=== PATIENT | female | born 1970 | race African-American/Black ===

== ENCOUNTER 2017-04-24 07:39 | Day surgery (SDC) | payer OTHER ==
[2017-04-20 10:49] VITALS: BMI 33.4
[~2017-04-24 07:39] MED LIST: ceFAZolin SODIUM 1 GM VIAL IVPB ONE
[2017-04-24 08:51] LABS: INR 1.13 (0.82-1.09); PROTHROMBIN TIME (PATIENT) 12.5 SEC (9.98-11.88)
--- NOTE | 2017-04-24 09:10 | HP ---
Past Medical History - Primary Care Physician PCP:: Jm Pastor - Admission Chief Complaint: 47yo P3 with chronic pelvic pain due to hematometria and post ablation, post ligation syndrome admitted for hysteroscopy, D&C, lysis of uterine adhesions. History of Present Illness: Pt with cyclic pelvic pains and amenorrhea after endometrial ablation in 2015. The pt was found to have hematometria on US. History Source: Patient, Medical Record Limitations to Obtaining History: No Limitations - Past Medical History CRACK OFF PERSON: No: Alzheimer's, CVA, Dementia, Migraine, Multiple Sclerosis, Peripheral Neuropathy, Parkinson's, Seizure, Syncope, TIA, Vertigo, Other Cardiovascular: Yes: Deep Vein Thrombosis (Bilateral PE 2011), HTN Pulmonary: Yes: Asthma, Pulmonary Embolus (2011) Gastrointestinal: Yes: GERD Hepatobiliary: No: Cirrhosis, Cholelithiasis, Cholecystitis, Choledocholithiasis , Hepatitis A, Hepatitis B, Hepatitis C, Other Renal/: No: Renal Failure, Renal Inusuff, BPH, Cancer, Hematuria, Hemodialysis , Neurogenic Bladder, Renal Calculi, UTI, Other Reproductive: Yes: Fibroids, Other (post ligation post ablation) ...Term: 3 Heme/Onc: Yes: Anemia, Hypercoaguable State Infectious Disease: No: AIDS, C-Diff, Herpes Zoster, HIV, MRSA, STD's, Tuberculosis, VREF, Other Psych: No: Addictions, Anxiety, Bipolar, Depression, Panic, Psychosis, Schizophrenia, Other Musculoskeletal: No: Bursitis, Chronic low back pain, Hemiparesis, Hemiplegia, Osteoarthritis, Paraplegia, Other Rheumatology: Yes: Rheumatoid Arthritis Endocrine: Yes: Diabetes Mellitus Dermatology: No: Basal Cell, Cellulitis, Eczema, Melanoma, Psoriasis, Squamous Cell, Other - Past Surgical History Past Surgical History: Yes: (x2), Tubal Ligation Hx Myomectomy: No Hx Transabdominal Cerclage: No Additional Surgical History: Endometrial Ablation - Smoking History Smoking history: Never smoked Have you smoked in the past 12 months: No Aproximately how many cigarettes per day: 0 - Alcohol/Substance Use Hx Alcohol Use: No History of Substance Use: reports: None - Social History Usual Living Arrangement: Yes: With Child ADL: Independent History of Recent Travel: No Home Medications - Allergies Allergies/Adverse Reactions: Allergies Allergy/AdvReac Type Severity Reaction Status Date / Time corn [Angier] Allergy Mild Rash Verified 04/24/17 07:50 No Known Drug Allergies Allergy Verified 04/24/17 07:50 Peanuts Allergy Severe Difficulty Uncoded 04/24/17 07:50 Breathing seafood Allergy Severe Difficulty Uncoded 04/24/17 07:50 Breathing - Home Medications Home Medications: Ambulatory Orders Albuterol Sulfate [Ventolin Hfa] 8 gm IH QID PRN 12/18/12 Omeprazole 20 mg PO BID 04/01/13 Amlodipine Besylate [Norvasc -] 5 mg PO HS 12/12/15 Salmeterol/Fluticasone [Advair 100Mcg/50Mcg -] 1 inh IH PRN 09/20/16 Sulfasalazine [Sulfazine] 1,000 mg PO BID 04/20/17 Family Disease History - Family Disease History Family Disease History: Diabetes: Father (HTN, Asthma), Mother, Other: Father, Sister ( due to cardiac hypertrophy) Review of Systems - Review of Systems Constitutional: reports: No Symptoms Eyes: reports: No Symptoms HENT: reports: No Symptoms Neck: reports: No Symptoms Cardiovascular: reports: No Symptoms Respiratory: reports: No Symptoms Gastrointestinal: reports: No Symptoms Genitourinary: reports: No Symptoms Breasts: reports: No Symptoms Reported Musculoskeletal: reports: No Symptoms Integumentary: reports: No Symptoms Neurological: reports: No Symptoms Endocrine: reports: No Symptoms Hematology/Lymphatic: reports: No Symptoms Psychiatric: reports: No Symptoms 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 Vital Signs: Vital Signs Temperature 98.4 F 04/24/17 07:54 Pulse Rate 73 04/24/17 07:54 Respiratory Rate 18 04/24/17 07:54 Blood Pressure 118/72 04/24/17 07:54 O2 Sat by Pulse Oximetry (%) 97 04/24/17 07:54 Constitutional: Yes: Well Nourished, No Distress, Calm Eyes: Yes: WNL, Conjunctiva Clear HENT: Yes: WNL, Atraumatic, Normocephalic Neck: Yes: WNL, Supple, Trachea Midline Cardiovascular: Yes: WNL, Regular Rate and Rhythm Respiratory: Yes: WNL, Regular, CTA Bilaterally Gastrointestinal: Yes: Normal Bowel Sounds, Soft, Abdomen, Obese ...Rectal Exam: Yes: WNL Renal/: Yes: WNL Pelvis: Yes: WNL External Genitalia: Yes: Normal Internal Exam Deferred: No Vaginal Exam: Yes: Normal Cervix: Yes: Normal Uterus: Yes: Normal, Enlarged Adnexa: Normal: Left, Right Musculoskeletal: Yes: WNL Extremities: Yes: WNL Edema: No Integumentary: Yes: WNL Neurological: Yes: WNL, Alert, Oriented ...Motor Strength: WNL Psychiatric: Yes: WNL, Alert, Oriented Imaging - Results Ultrasound: Report Reviewed Assessment/Plan 47yo P3 with chronic pelvic pain due to hematometria and post ablation, post ligation syndrome admitted for hysteroscopy, D&C, lysis of uterine adhesions. We had discussed the risks, benefits, alternatives of surgery at length including but not limited to infection, bleeding, scarring, perforation, hysterectomy, pelvic pain, etc. The pt verbalized understanding and requested to proceed with surgery. I emphasized that all surgeries have risks and no guarantees can be provided
[2017-04-24] MEDS ORDERED: MIDAZOLAM HCL 2 MG/2 ML SINGLE DOSE VIAL ONE (09:27)
[2017-04-24] MEDS ORDERED: PROPOFOL 20 ML ONE (09:31)
[2017-04-24] MEDS ORDERED: LIDOCAINE HCL/PF 2% SDV 5ML VIAL ONE (09:45)
[2017-04-24] MEDS ORDERED: ceFAZolin SODIUM 1 GM VIAL ONE (09:45)
[2017-04-24] MEDS ORDERED: DEXAMETHASONE SOD PHOSPHATE 4 MG/1 ML VIAL ONE (09:45)
[2017-04-24] MEDS ORDERED: ceFAZolin SODIUM 1 GM VIAL IVPB ONE (09:55)
[2017-04-24] MEDS ORDERED: PROMETHAZINE HCL 25 MG/1 ML VIAL IVPUSH PRN (10:34)
[2017-04-24] MEDS ORDERED: ONDANSETRON 4 MG/2 ML VIAL IVPUSH PRN (10:34)
[2017-04-24] MEDS ORDERED: oxyCODONE HCL 5 MG TABLET PO PRN (10:34)
[2017-04-24] MEDS ORDERED: ACETAMINOPHEN 325 MG TABLET (FP) PO PRN (10:39)
[2017-04-24] MEDS ORDERED: IBUPROFEN 600 MG TABLET (FP) PO PRN (10:39)
--- NOTE | 2017-04-24 10:39 | OP ---
Operative Note - Note: Operative Date: 04/24/17 Pre-Operative Diagnosis: Uterine Adhesions/synechiae, dysmenorrhea, post ablation post ligation syndrome. Operation: Hysteroscopy, ultrasound guided lysis of uterine adhesions, D&C Findings: Dense Adhesions mostly in the right side of the uterine cavity. The left side of the uterine cavity is largely adhesion-free. Post-Operative Diagnosis: Same as Pre-op Surgeon: Jm Pastor Anesthesiologist/DENTAL MECHANIC: Lisa Mathis MD Anesthesia: General Specimens Removed: Uterine curettings Estimated Blood Loss (mls): 30 Blood Volume Replaced (mls): 0 Fluid Volume Replaced (mls): 700 Operative Report Dictated: Yes
[2017-04-24] MEDS ORDERED: LACTATED RINGERS SOLUTION 1,000 ML IV SCH (10:45)
[2017-04-24 11:40] VITALS: TEMP 98.5
[2017-04-24 12:53] VITALS: BP 129/69; PULSE 76
--- NOTE | 2017-04-25 08:06 | OP ---
DATE OF OPERATION: 04/24/2017 PREOPERATIVE DIAGNOSES: Uterine adhesions and uterine synechiae, dysmenorrhea, post ablation, post-ligation syndrome. POSTOPERATIVE DIAGNOSES: Uterine adhesions and uterine synechiae, dysmenorrhea, post ablation, post-ligation syndrome. PROCEDURE: Ultrasound-guided dilation and curettage, hysteroscopy; ultrasound and hysteroscopy-guided lysis of uterine adhesions/synechiae. SURGEON: Riley Pastor MD BRANCH EMPLOYMENT COORDINATOR: None. ANESTHESIOLOGIST: Lisa Mathis MD ANESTHESIA: General. COMPLICATIONS: None. ESTIMATED BLOOD LOSS: 30 mL INTRAVENOUS FLUIDS: 700 mL PATHOLOGY: Uterine curettings. FINDINGS: Examination under anesthesia revealed a small anteverted uterus with no pelvic or adnexal masses noted. Preoperative ultrasound did not show sequestered pockets of blood within endometrial cavity as was seen on prior ultrasounds. Intraoperative ultrasound was used at all times to guide surgical instruments and assist in cervical dilation as well as lysis of adhesions. Hysteroscopy revealed multiple dense adhesions, mostly on the right side of the uterine cavity. The left side of the uterine cavity was largely adhesion free, and the left fallopian tube ostium was visualized. After the lysis of adhesions, both sides of the uterine cavity could be visualized. However, the right fallopian tube ostium could not be seen. Good hemostasis was noted at the end of the procedure. There were no complications intraoperatively or postoperatively. DESCRIPTION OF PROCEDURE: The patient was met preoperatively. Risks, benefits, and alternatives of surgery were discussed in details. All questions were answered. The patient was then brought to the OR with the IV running. She was placed on a surgical table in a supine position. The general anesthesia was achieved without difficulty. The patient was then placed in a dorsal lithotomy position using adjustable Vidal stirrups. She was prepped and draped in the usual sterile fashion. A pelvic ultrasound was then performed preoperatively with the findings as described above. The ultrasound guidance then continued throughout the entire procedure until the very end. The patient was examined under anesthesia with the findings as described previously. The patient was prepped and draped in the usual sterile fashion. A sterile speculum was introduced inside the uterine cavity. The cervix was grasped with a single-tooth tenaculum. A size 13 Jordan dilator was used to dilate the cervical os. The ultrasound guidance was used to confirm intracervical and intrauterine placement. Once this was accomplished, a hysteroscope was introduced inside the uterus under direct visualization. Hysteroscopy showed dense adhesions, mostly on the right side of the uterus, obliterating the right half of the uterine cavity. The left half of the uterine cavity was essentially adhesion free, and the left fallopian tube ostium was visualized. The hysteroscope was then used to lyse the dense adhesions on the right side of the uterus. Hysteroscopic visualization as well as real-time ultrasound guidance was used to monitor and confirm position of the instruments inside the uterus. Once the lysis of adhesions was completed, the entire uterine cavity was again visualized. However, the right fallopian tube ostium could not be seen. Good hemostasis was noted. A gentle uterine curettage was then performed, and the tissue was submitted to Pathology for evaluation. Once again, the hysteroscope was introduced into the uterine cavity, and good hemostasis was noted. There was no evidence of perforation or any uterine lesions. The instruments were then removed from the patient. Sponge, lap, and instrument counts were correct. The patient was transferred to recovery room in stable condition and awake. Zuleyma [id number]
--- NOTE | 2017-04-25 12:52 | PATH ---
Surgical Pathology Report Patient Name: FEMI WALLACE [facility]. Rec. #: [id number] /Age/Gender: 1970 (Age: 47) / F Account: [id number] Location: [facility] SURGICAL Taken: 04/24/2017 Received: 04/24/2017 Reported: 04/25/2017 Physicians: Jm Pastor M.D. Specimen(s) Received ENDOMETRIAL CURETTINGS Clinical History Post ablation syndrome Final Diagnosis ENDOMETRIUM, CURETTING: ENDOMETRIUM WITH STROMAL AND GLANDULAR BREAKDOWN, PORTIONS OF MYOMETRIAL TISSUE, AND CLOTTED BLOOD. NO ENDOMETRIAL HYPERPLASIA OR CARCINOMA IDENTIFIED. COMMENT: See also [id number]. Electronically Signed Charly Estrada M.D. Gross Description Received in formalin labeled "endometrial curettings," is a 2.0 x 1.2 x 0.3 cm aggregate of garcia red soft tissue fragments admixed with blood clot. The formalin is filtered and the specimen is entirely submitted in one cassette. /04/24/2017 saudi04/24/2017
== END 2017-04-24 13:00 | disposition home or self-care (01) ==
LOC: JASU-SURG 07:39
PROVIDERS: ATTEND Obstetrics & Gynecology
PROC: 0UDB8ZX Extraction of Endometrium, Via Natural or Artificial Opening Endoscopic, Diagnostic (ICD-10-PCS; principal; 2017-04-24 09:00)
PROC: 0UN98ZZ Release Uterus, Via Natural or Artificial Opening Endoscopic (ICD-10-PCS; 2017-04-24 09:00)
DX: N94.6 Dysmenorrhea, unspecified (principal); N85.6 Intrauterine synechiae
CPT/HCPCS: 36415; 76998-TC; 84703; 85610; 85730; 88305-TC; 94760

== ENCOUNTER 2018-08-04 18:12 | Emergency (ER) | payer OTHER ==
[2018-08-04 18:24] VITALS: BP 128/80; PULSE 77; TEMP 98.8; BMI 31.1
--- NOTE | 2018-08-04 18:46 | PDOC ---
History of Present Illness - General Chief Complaint: Rash Stated Complaint: RASH Time Seen by Provider: 08/04/18 18:26 History Source: Patient Exam Limitations: No Limitations - History of Present Illness Initial Comments: 08/04/18 18:43 c/o itchy burning rash to the chest, under the neck and the inner thigh left side noticed yesterday after waking up no new medications or foods Past History - Past Medical History Allergies/Adverse Reactions: Allergies Allergy/AdvReac Type Severity Reaction Status Date / Time corn [Rosenhayn] Allergy Mild Rash Verified 08/04/18 18:20 No Known Drug Allergies Allergy Verified 08/04/18 18:20 Peanuts Allergy Severe Difficulty Uncoded 08/04/18 18:20 Breathing seafood Allergy Severe Difficulty Uncoded 08/04/18 18:20 Breathing Home Medications: Ambulatory Orders Omeprazole 20 mg PO BID 04/01/13 Hydrocortisone Valerate [Westcort 0.2% Cream -] 1 applic TP TID #1 tube Asthma: Yes Cancer: No Cardiac Disorders: No CVA: No COPD: No (HX PULM EMBOLISM 2011) Dementia: No Diabetes: Yes (DIET CONTROLLED) GI Disorders: Yes (ACID REFLUX) Disorders: No HTN: No Hypercholesterolemia: Yes Liver Disease: No Seizures: No Thyroid Disease: No - Immunization History Td Vaccination: Yes Immunization Up to Date: Yes - Suicide/Smoking/Psychosocial Hx Smoking Status: No Smoking History: Never smoked Have you smoked in the past 12 months: No Number of Cigarettes Smoked Daily: 0 Hx Alcohol Use: No Drug/Substance Use Hx: No Substance Use Type: None Hx Substance Use Treatment: No Review of Systems - Review of Systems Able to Perform ROS?: Yes Is the patient limited Georgian proficient: No Constitutional: No: Symptoms Reported HEENTM: No: Symptoms Reported Respiratory: No: Symptoms reported Cardiac (ROS): No: Symptoms Reported ABD/GI: No: Symptoms Reported : No: Symptoms Reported Musculoskeletal: No: Symptoms Reported Integumentary: Yes: Symptoms Reported *Physical Exam - Vital Signs Last Vital Signs Temp Pulse Resp BP Pulse Ox 98.8 F 77 14 128/80 99 08/04/18 18:21 08/04/18 18:21 08/04/18 18:21 08/04/18 18:21 08/04/18 18:21 - Physical Exam General Appearance: Yes: Nourished, Appropriately Dressed HEENT: positive: EOMI, GAUTAM, Normal ENT Inspection, TMs Normal, Pharynx Normal Neck: positive: Supple. negative: Tender Respiratory/Chest: positive: Lungs Clear, Normal Breath Sounds. negative: Chest Tender Gastrointestinal/Abdominal: positive: Normal Bowel Sounds, Soft Musculoskeletal: positive: Normal Inspection Extremity: positive: Normal Capillary Refill, Normal Inspection, Normal Range of Motion Integumentary: positive: Rash (right side chest [id number] diameter) Neurologic: positive: Fully Oriented, Alert, Normal Mood/Affect, Normal Response , Motor Strength 5/5 *DC/Admit/Observation/Transfer Diagnosis at time of Disposition: Insect bite Qualifiers: Encounter type: initial encounter Qualified Code(s): W57.XXXA - Bitten or stung by nonvenomous insect and other nonvenomous arthropods, initial encounter - Discharge Dispostion Disposition: HOME Condition at time of disposition: Good - Prescriptions Prescriptions: Hydrocortisone Valerate [Westcort 0.2% Cream -] 1 applic TP TID #1 tube - Referrals - Patient Instructions Additional Instructions: cool water compresses to the areas of bites apply the cortisone cream as directed take benadryl 50mg (over the counter) at bedtime to help with itching return if worse follow with your doctor next week as needed - Post Discharge Activity
== END 2018-08-04 18:52 | disposition home or self-care (01) ==
LOC: JERFT 18:12
DX: S20.361A Insect bite (nonvenomous) of right front wall of thorax, initial encounter (principal); W57.XXXA Bitten or stung by nonvenomous insect and other nonvenomous arthropods, initial encounter; Y93.89 Activity, other specified; Y92.013 Bedroom of single-family (private) house as the place of occurrence of the external cause; E11.9 Type 2 diabetes mellitus without complications; E78.00 Pure hypercholesterolemia, unspecified; J45.909 Unspecified asthma, uncomplicated; Z86.711 Personal history of pulmonary embolism
CPT/HCPCS: 99281-25

== ENCOUNTER 2021-07-02 18:18 | Emergency (ER) | payer OTHER ==
[2021-07-02 18:30] VITALS: TEMP 98.1; BMI 33.4
[2021-07-02] MEDS ORDERED: CASIRIVIMAB/IMDEVIMAB 10 ML in SODIUM CHLORIDE 100 ML IVPB ONE (18:47)
[2021-07-02 19:14] LABS: BASO % 1.2 % (0-2.0); EOS % 0.4 % (0-4.5); HEMATOCRIT 42.1 % (32.4-45.2); HEMOGLOBIN 14.2 GM/dL (10.7-15.3); LYMPH % 43.5 % (8-40); MCH 27.8 pg (25.7-33.7); MCHC 33.6 g/dl (32.0-36.0); MEAN CELL VOLUME 82.7 fl (80-96); MEAN PLT VOLUME 9.1 fl (7.5-11.1); MONO % 9.6 % (3.8-10.2); NEUT % 45.3 % (42.8-82.8); PLATELET COUNT 190 10^3/uL (134-434); RDW 13.2 % (11.6-15.6); WHITE BLOOD COUNT 3.4 K/mm3 (4.0-10.0)
[2021-07-02 19:36] LABS: CALCIUM 8.8 mg/dL (8.5-10.1)
[2021-07-02 19:37] LABS: ALBUMIN 3.3 g/dl (3.4-5.0)
[2021-07-02 19:40] LABS: CREATININE 0.8 mg/dL (0.55-1.3)
[2021-07-02 19:41] LABS: BILIRUBIN,TOTAL 0.3 mg/dL (0.2-1); TOT PROT 7.7 g/dl (6.4-8.2)
[2021-07-02 22:03] VITALS: BP 158/90; PULSE 78
== END 2021-07-02 22:04 | disposition home or self-care (01) ==
LOC: JER 18:18
DX: U07.1 COVID-19 (principal)
CPT/HCPCS: 36415; 80053; 85025; 99284-25; Q0240

== ENCOUNTER 2021-10-25 08:45 | Day surgery (SDC) | payer OTHER ==
[2021-10-19 10:16] VITALS: BMI 31.1
[2021-10-25] MEDS ORDERED: MIDAZOLAM HCL 2 MG/2 ML SINGLE DOSE VIAL ONE ×2 (09:16→11:36)
[2021-10-25] MEDS ORDERED: ROPIVACAINE HCL/PF 100 MG/20 ML VIAL ONE (09:16)
[2021-10-25] MEDS ORDERED: PROPOFOL 20 ML ONE ×5 (10:52→11:27)
[2021-10-25] MEDS ORDERED: SEVOFLURANE 250 ML BTL ONE (10:54)
[2021-10-25] MEDS ORDERED: LIDOCAINE HCL/PF 2% SDV 5ML VIAL ONE (10:58)
[2021-10-25] MEDS ORDERED: DEXAMETHASONE SOD PHOSPHATE 4 MG/1 ML VIAL ONE (11:28)
[2021-10-25] MEDS ORDERED: ceFAZolin SODIUM 1 GM VIAL ONE (11:28)
[2021-10-25] MEDS ORDERED: KETOROLAC TROMETHAMINE 30 MG/1 ML VIAL ONE (11:28)
[2021-10-25] MEDS ORDERED: ONDANSETRON 4 MG/2 ML VIAL ONE (11:28)
[2021-10-25] MEDS ORDERED: BUPIVACAINE 0.25% /EPI 1:200,000 10 ML VIAL NR ONE (11:51)
[2021-10-25] MEDS ORDERED: PROMETHAZINE HCL 25 MG/1 ML VIAL IVPUSH PRN (13:32)
[2021-10-25] MEDS ORDERED: oxyCODONE HCL 5 MG TABLET PO PRN ×2 (13:32)
[2021-10-25] MEDS ORDERED: ONDANSETRON 4 MG/2 ML VIAL IVPUSH PRN (13:32)
[2021-10-25 16:07] VITALS: BP 121/81; PULSE 72; TEMP 97.8
== END 2021-10-25 16:25 | disposition home or self-care (01) ==
LOC: FASU 08:45
PROVIDERS: ATTEND Orthopaedic Surgery
PROC: 0LS30ZZ Reposition Right Upper Arm Tendon, Open Approach (ICD-10-PCS; 2021-10-25)
PROC: 0PB94ZZ Excision of Right Clavicle, Percutaneous Endoscopic Approach (ICD-10-PCS; principal; 2021-10-25 11:52)
PROC: 0RBJ4ZZ Excision of Right Shoulder Joint, Percutaneous Endoscopic Approach (ICD-10-PCS; 2021-10-25 11:52)
DX: M67.813 Other specified disorders of tendon, right shoulder (principal); M65.811 Other synovitis and tenosynovitis, right shoulder; M75.01 Adhesive capsulitis of right shoulder; M19.011 Primary osteoarthritis, right shoulder; S46.111A Strain of muscle, fascia and tendon of long head of biceps, right arm, initial encounter; X58.XXXA Exposure to other specified factors, initial encounter; Y93.9 Activity, unspecified; Y92.9 Unspecified place or not applicable
CPT/HCPCS: 88304-TC; 94760

== ENCOUNTER 2024-05-30 16:37 | Emergency (ER) | payer OTHER ==
[2024-05-30 17:12] VITALS: RESP 16; TEMP 98; BMI 30.1
[2024-05-30 18:10] LABS: BASO % 0.7 % (0-2.0); EOS % 1.9 % (0-4.5); HEMATOCRIT 36.7 % (32.4-45.2); HEMOGLOBIN 12.1 GM/dL (10.7-15.3); LYMPH % 42.6 % (8-40); MCH 27.8 pg (25.7-33.7); MEAN CELL VOLUME 84.5 fl (80-96); MEAN PLT VOLUME 8.6 fl (7.5-11.1); MONO % 7.3 % (3.8-10.2); NEUT % 47.5 % (42.8-82.8); PLATELET COUNT 242 10^3/uL (134-434); RBC 4.34 M/mm3 (3.60-5.2); RDW 13.3 % (11.6-15.6); WHITE BLOOD COUNT 4.6 K/mm3 (4.0-10.0)
[2024-05-30 18:28] LABS: CHLORIDE 108 mmol/L (98-107); POTASSIUM 3.6 mmol/L (3.5-5.1); SODIUM 139 mmol/L (136-145)
[2024-05-30 18:30] LABS: CALCIUM 8.7 mg/dL (8.5-10.1)
[2024-05-30 18:31] LABS: ALBUMIN 3.1 g/dl (3.4-5.0); ANION GAP 7 mmol/L (4-13); BLOOD UREA NITROGEN 7.2 mg/dL (7-18); CO2 24 mmol/L (21-32); GLUCOSE,RANDOM 103 mg/dL (74-106)
[2024-05-30 18:34] LABS: CREATININE 0.7 mg/dL (0.55-1.3); SGOT/AST 13 U/L (15-37); SGPT/ALT 28 U/L (13-61)
[2024-05-30 18:35] LABS: BILIRUBIN,TOTAL 0.2 mg/dL (0.2-1); TOT PROT 6.6 g/dl (6.4-8.2)
[2024-05-30 18:37] LABS: ALK PHOS 92 U/L (45-117)
[2024-05-30 19:30] VITALS: BP 124/50; PULSE 74
== END 2024-05-30 20:01 | disposition home or self-care (01) ==
LOC: JER 16:37
DX: G40.909 Epilepsy, unspecified, not intractable, without status epilepticus (principal); R51.9 Headache, unspecified; M62.81 Muscle weakness (generalized); R11.10 Vomiting, unspecified
CPT/HCPCS: 36415; 70450-TC; 80053; 82962; 84702; 85025; 93005; 93010; 99285-25

== ENCOUNTER 2024-07-23 23:52 | Emergency (ER) | payer OTHER ==
[2024-07-24 00:35] VITALS: BP 125/77; PULSE 75; RESP 18; TEMP 98.4; BMI 29.9
[2024-07-24] MEDS ORDERED: predniSONE 20 MG TABLET (UD) ONE (00:37)
[2024-07-24] MEDS ORDERED: diphenhydrAMINE HCL 25 MG CAPSULE (FP) PO ONE (00:37)
[2024-07-24] MEDS: predniSONE 20 MG TABLET (UD) PO ONE (00:42)
[2024-07-24] MEDS: diphenhydrAMINE HCL 50 MG CAPSULE PO ONE (00:42)
== END 2024-07-24 01:50 | disposition home or self-care (01) ==
LOC: FER 23:52
DX: L50.9 Urticaria, unspecified (principal)
CPT/HCPCS: 99283-25